=== PATIENT | male | born 1975 | race American Indian/Alaskan Native ===

== ENCOUNTER 2017-07-13 12:02 | Emergency (ER) | payer OTHER ==
[~2017-07-13] VITALS: Ht 195.6 cm; Wt 151.9 kg
[~2017-07-13 12:02] MED LIST: LOSARTAN POTASS25 MG PO; NORCO 5-325 TA1 EACH PO; PERCOCET 10-321 EACH PO; VENTOLIN HFA18 GM INH
== END 2017-07-13 12:18 | disposition home or self-care (01) ==
LOC: ED 12:02
DX: Z00.8 Encounter for other general examination (principal)

== ENCOUNTER 2020-07-09 00:39 | Emergency (ER) | payer OTHER ==
[~2020-07-09] VITALS: Ht 195.6 cm; Wt 158.8 kg
[~2020-07-09 00:39] MED LIST changes: +HYDROCHLOROTH12.5 M1 PO; +LORAZEPAM0.5 MG PO
[2020-07-09] MEDS ORDERED: CHLORDIAZEPOXID25 MG PO (02:52)
--- NOTE | 2020-07-09 12:39 | EKG ---
[facility] [address] [place], [place] [address] Signed Normal sinus rhythm Normal ECG When compared with ECG of 01-NOV-2018 11:21, No significant change was found Confirmed by EVANS LIZ MD ([id number]) on 07/09/2020 12:39:19 PM Electronically Signed By: EVANS LIZ MD 07/09/20 1239 PATIENT NAME: JORDYN HINKLE KEITH Electrocardiogram DATE OF : 75 PHYSICIAN: EVANS LIZ MD REPORT #: [id number] REPORT IS CONFIDENTIAL AND NOT TO BE RELEASED WITHOUT AUTHORIZATION
== END 2020-07-09 04:15 | disposition home or self-care (01) ==
LOC: ED 00:39
DX: F10.129 Alcohol abuse with intoxication, unspecified (principal); E87.6 Hypokalemia; R74.0 Nonspecific elevation of levels of transaminase and lactic acid dehydrogenase [LDH]; I10 Essential (primary) hypertension; Z87.891 Personal history of nicotine dependence; Z79.899 Other long term (current) drug therapy; Y90.8 Blood alcohol level of 240 mg/100 ml or more
CPT/HCPCS: 71045; 80053; 83735; 84484; 85025; 93005; 93010; 96365; 96366; 96375; 99284-25; G0480; J2405; J3411; J7030

== ENCOUNTER 2020-07-11 10:17 | Inpatient (IN) | payer OTHER ==
[~2020-07-11] VITALS: Ht 195.6 cm; Wt 154.2 kg
[~2020-07-11 10:17] MED LIST changes: +CHLORDIAZEPOXID25 MG PO
--- OUTSIDE RECORDS SUMMARY | 2020-07-11 10:20 | XMS ---
PreManage Notification: JORDYN HINKLE Security Industrial Relations Director Events No recent Security Events currently on file CRITERIA MET - [facility] - 2 Visits in 30 Days CARE PROVIDERS There are no care providers on record at this time. Evelia has no Care Guidelines for this patient. [facility] MO[facility] T[facility] NOTE: Visits indicate total known visits. ED/C VISIT TRACKING (12 MO.) 07/11/2020 10:17 [facility] [place] TYPE: Emergency COMPLAINT: - POSSIBLE ALCOHOL WITHDRAWL 07/09/2020 00:[address] [facility] [place] TYPE: Emergency COMPLAINT: - INTOXICATION DIAGNOSES: - Personal history of nicotine dependence - Nonspecific elevation of levels of transaminase and lactic ac - Essential (primary) hypertension - Other remote computer terminal operator (current) drug therapy - Blood alcohol level of 240 mg/100 ml or more - Hypokalemia - Alcohol abuse with intoxication, unspecified INPATIENT VISIT TRACKING (12 MO.) No inpatient visits to display in this time frame [email or web address]
[2020-07-11] MEDS ORDERED: ATIVAN0.5 MG PO (10:37)
[2020-07-13] MEDS ORDERED: LOSARTAN POTASS50 MG PO (13:06)
--- NOTE | 2020-07-13 18:49 | PATH ---
[facility] [address] [facility] [place], [place] [address] Signed ORDERING PHYSICIAN: Demetri Chen MD PATIENT NAME: JORDYN HINKLE GENDER: Miguel Ángel : 1975 SPECIMEN(S): No Source Given MOLECULAR PATHOLOGY RESULTS: SARS-CoV-2 Not Detected ADDITIONAL NOTES.: The [place] Fusion SARS-CoV-2 Assay is a multiplex real-time PCR (RT-PCR) in vitro diagnostic test intended for the qualitative detection of RNA from SARS-CoV-2 from individuals who meet COVID-19 clinical and/or epidemiological criteria. In general, SARS-CoV-2 RNA can be detected during the acute phase of infection. Positive results indicate the presence of SARS-CoV-2 RNA. Clinical correlation with patient history and other diagnostic information is necessary to determine patient infection status. Positive results do not rule out bacterial infection or co-infection with other viruses. Negative results do not preclude SARS-CoV-2 infection and should not be used as the sole basis for patient management decisions. Negative results must be combined with other clinical observations, patient history, and epidemiological information. The [place] Fusion SARS-CoV-2 Assay is not yet approved or cleared by the [place] FDA. When there are no FDA-approved or cleared tests available, and other criteria are met, FDA can make tests available under an emergency access mechanism called an Emergency Use Authorization (EUA). The EUA for this test is supported by the [place] of Health and Human Service's (HHS's) declaration that circumstances exist to justify the emergency use of in vitro diagnostics for the detection and/or diagnosis of the virus that causes COVID-19. This EUA will remain in effect for the duration of the COVID-19 declaration justifying emergency of IVDs, unless it is terminated or revoked by FDA, after which the test may no longer be used. The [place] Fusion SARS-CoV-2 Assay is for use only under EUA in US laboratories certified under the Clinical Laboratory Improvement Amendments of 1988 (CLIA) to perform high complexity tests. [facility] is certified under CLIA to perform high complexity PATIENT NAME: JORDYN HINKLE PATHOLOGY DATE OF : 75 REPORT #: [id number] PHYSICIAN: EMILY NARVAEZ PCP: JOEL TRINIDAD REPORT IS CONFIDENTIAL AND NOT TO BE RELEASED WITHOUT AUTHORIZATION [address] [address] Signed clinical laboratory testing. PERFORMING LABORATORY.: Molecular testing was performed by [facility] [address] [place], [place] [address] [address] (Dust Collector Operator: Shivam Powers D.O.; CLIA#: [id number]) Diagnostician: System Interface Pathologist Electronically Signed 07/13/2020 Copies: ~ PATIENT NAME: JORDYN HINKLE PATHOLOGY DATE OF : [birth year] REPORT #: [id number] PHYSICIAN: EMILY NARVAEZ PCP: JOEL TRINIDAD REPORT IS CONFIDENTIAL AND NOT TO BE RELEASED WITHOUT AUTHORIZATION
== END 2020-07-13 14:15 | disposition home or self-care (01) | DRG 897 ==
LOC: ED 10:17 → CCU 12:43
PROVIDERS: ADMIT Internal Medicine
DX: F10.231 Alcohol dependence with withdrawal delirium (principal); Z20.828 Contact with and (suspected) exposure to other viral communicable diseases; I10 Essential (primary) hypertension; E83.42 Hypomagnesemia; E87.6 Hypokalemia; K70.10 Alcoholic hepatitis without ascites; N28.1 Cyst of kidney, acquired; K29.00 Acute gastritis without bleeding; K29.50 Unspecified chronic gastritis without bleeding; K80.80 Other cholelithiasis without obstruction; K76.0 Fatty (change of) liver, not elsewhere classified; M43.28 Fusion of spine, sacral and sacrococcygeal region; Z87.891 Personal history of nicotine dependence; Z79.899 Other long term (current) drug therapy
CPT/HCPCS: 36415; 74177; 80048; 80053; 83690; 83735; 84100; 85025; 85610; 96375; 99285-25; C9113; C9803; G0480; J2060; J2405; J3360; J3411; J3475; J3480; J7030; J7060; J7120; Q9967

== ENCOUNTER 2020-10-29 03:45 | Emergency (ER) | payer OTHER ==
[~2020-10-29] VITALS: Ht 198.1 cm; Wt 145.1 kg
[~2020-10-29 03:45] MED LIST changes: +ATIVAN0.5 MG PO; +LOSARTAN POTASS50 MG PO
--- OUTSIDE RECORDS SUMMARY | 2020-10-29 03:48 | XMS ---
PreManage Notification: JRODYN HINKLE Security Director Nicu Events No recent Security Events currently on file CRITERIA MET - [facility] CARE PROVIDERS Name Unknown Clinic/Center 07/13/2020-Current PHONE: [phone] Evelia has no Care Guidelines for this patient. Care History Medical/Surgical 07/13/2020 [facility] - PATIENT IS [facility] ELIGIBLE, \T\middot;\T\nbsp; PLEASE REFER PATIENT TO [facility] FOR NON EMERGENT MEDICAL NEEDS. \T\middot;\T\nbsp; [facility] CAN SEE PATIENTS SAME DAY FOR APTS IF PATIENT CALLS FIRST THING IN THE MORNING. E.D. VISIT COUNT (12 MO.) [address] [place] [address] TOTAL 3 NOTE: Visits indicate total known visits. ED/UCC VISIT TRACKING (12 MO.) 10/29/2020 03:46 [facility] [place] TYPE: Emergency COMPLAINT: - POSSIBLE HIGH BLOOD PRESSURE 07/11/2020 10:17 [facility] [place] TYPE: Emergency COMPLAINT: - POSSIBLE ALCOHOL WITHDRAWL 07/09/2020 00:40 [facility] [place] TYPE: Emergency COMPLAINT: - INTOXICATION DIAGNOSES: - Personal history of nicotine dependence - Nonspecific elevation of levels of transaminase and lactic acid dehydrogenase [LDH] - Essential (primary) hypertension - Other senior care (current) drug therapy - Blood alcohol level of 240 mg/100 ml or more - Hypokalemia - Alcohol abuse with intoxication, unspecified INPATIENT VISIT TRACKING (12 MO.) 07/11/2020 12:[address] [facility] [place] TYPE: Critical Care COMPLAINT: - DT'S DIAGNOSES: - Acute gastritis without bleeding - Cyst of kidney, acquired - Alcoholic hepatitis without ascites - Alcohol dependence with withdrawal, unspecified - Unspecified chronic gastritis without bleeding - Fusion of spine, sacral and sacrococcygeal region - Personal history of nicotine dependence - Alcohol dependence with withdrawal delirium - Hypokalemia - Hypomagnesemia - Other termite renewal inspector (current) drug therapy - Other cholelithiasis without obstruction - Essential (primary) hypertension - Contact with and (suspected) exposure to other viral communicable diseases - Fatty (change of) liver, not elsewhere classified [email or web address]
[2020-10-29] MEDS ORDERED: CHLORDIAZEPOXID25 MG PO (04:04)
== END 2020-10-29 05:33 | disposition home or self-care (01) ==
LOC: ED 03:45
DX: F10.10 Alcohol abuse, uncomplicated (principal); F41.9 Anxiety disorder, unspecified; I10 Essential (primary) hypertension; Y90.6 Blood alcohol level of 120-199 mg/100 ml; Z79.899 Other long term (current) drug therapy
CPT/HCPCS: 80053; 85025; 99283; G0480

== ENCOUNTER 2021-04-04 23:26 | Emergency (ER) | payer OTHER ==
[~2021-04-04] VITALS: Ht 198.1 cm; Wt 145.2 kg
--- OUTSIDE RECORDS SUMMARY | 2021-04-04 23:30 | XMS ---
PreManage Notification: JORDYN HINKLE Security Production Finisher Events No recent Security Events currently on file CRITERIA MET - [facility] CARE PROVIDERS [facility] 07/13/2020-[facility] PHONE: [phone] Evelia has no Care Guidelines for this patient. Care History Medical/Surgical 07/13/2020 [facility] - PATIENT IS [facility] ELIGIBLE, \T\middot;\T\nbsp; PLEASE REFER PATIENT TO [facility] FOR NON EMERGENT MEDICAL NEEDS. \T\middot;\T\nbsp; [facility] CAN SEE PATIENTS SAME DAY FOR APTS IF PATIENT CALLS FIRST THING IN THE MORNING. E.D. VISIT COUNT (12 MO.) [address] [place] [address] TOTAL 4 NOTE: Visits indicate total known visits. ED/UCC VISIT TRACKING (12 MO.) 04/04/2021 23:26 [facility] [place] TYPE: Emergency COMPLAINT: - VOMITING 10/29/2020 03:46 [facility] [place] TYPE: Emergency COMPLAINT: - POSSIBLE HIGH BLOOD PRESSURE DIAGNOSES: - Essential (primary) hypertension - Blood alcohol level of 120-199 mg/100 ml - Alcohol abuse, uncomplicated - Other detention (current) drug therapy - Anxiety disorder, unspecified 07/11/2020 10:17 [facility] [place] TYPE: Emergency COMPLAINT: - POSSIBLE ALCOHOL WITHDRAWL 07/09/2020 00:40 [facility] [place] TYPE: Emergency COMPLAINT: - INTOXICATION DIAGNOSES: - Personal history of nicotine dependence - Nonspecific elevation of levels of transaminase and lactic acid dehydrogenase [LDH] - Essential (primary) hypertension - Other detention (current) drug therapy - Blood alcohol level of 240 mg/100 ml or more - Hypokalemia - Alcohol abuse with intoxication, unspecified INPATIENT VISIT TRACKING (12 MO.) 07/11/2020 12:43 [facility] [place] TYPE: Critical Care COMPLAINT: - DT'S DIAGNOSES: - Acute gastritis without bleeding - Cyst of kidney, acquired - Alcoholic hepatitis without ascites - Alcohol dependence with withdrawal, unspecified - Unspecified chronic gastritis without bleeding - Fusion of spine, sacral and sacrococcygeal region - Personal history of nicotine dependence - Alcohol dependence with withdrawal delirium - Hypokalemia - Hypomagnesemia - Other detention (current) drug therapy - Other cholelithiasis without obstruction - Essential (primary) hypertension - Contact with and (suspected) exposure to other viral communicable diseases - Fatty (change of) liver, not elsewhere classified [email or web address]
[2021-04-04] MEDS ORDERED: HYDROCHLOROTHIA25 MG PO (23:55)
[2021-04-05] MEDS ORDERED: ZOFRAN4 MG PO (03:24)
[2021-04-05] MEDS ORDERED: POTASSIUM CHLO20 ME1 PO (03:24)
== END 2021-04-05 07:07 | disposition home or self-care (01) ==
LOC: ED 23:26
DX: K29.20 Alcoholic gastritis without bleeding (principal); I10 Essential (primary) hypertension; E87.6 Hypokalemia; F10.10 Alcohol abuse, uncomplicated; Z79.899 Other long term (current) drug therapy
CPT/HCPCS: 80053; 83690; 84132; 85025; 85610; 85730; 86850; 86900; 86901; 96365; 96366; 96375; 96376; 99284-25; J2060; J2405; J3411; J3480; J7030